=== PATIENT | male | born 1975 | race Hispanic/Latino ===

== ENCOUNTER 2022-09-30 18:46 | Emergency (ER) | payer OTHER ==
[~2022-09-30] VITALS: Ht 165.1 cm; Wt 99.8 kg
[2022-09-30 20:25] LABS: BASOPHILS % (AUTO) 0.8 % (0.0-5.0); EOSINOPHILS % (AUTO) 2.7 % (0.0-8.0); HEMATOCRIT 45.8 % (42-54); MEAN CORPUSCULAR HEMOGLOBIN 28.1 pg (27.0-33.0); MEAN CORPUSCULAR HGB CONC 33.4 g/dL (32.0-36.0); NEUTROPHILS % (AUTO) 49.3 % (40.0-77.0); PLATELET COUNT (AUTO) 271 K/uL (130-400); RED BLOOD CELL COUNT(AUTO) 5.45 MIL/uL (4.50-6.20); RED CELL DISTRIBUTION WIDTH 12.7 % (11.0-15.5); WHITE BLOOD COUNT (AUTO) 6.7 K/uL (4.8-10.8)
[2022-09-30] MEDS ORDERED: PREDNISONE 20 MG TABLET ONE (20:26)
[2022-09-30] MEDS ORDERED: IPRATROPIUM/ALBUTEROL SULFATE 3 ML SOLUTION IH ONE ×2 (20:30→21:30)
[2022-09-30] MEDS ORDERED: PREDNISONE 20 MG TABLET PO ONE (20:30)
[2022-09-30 20:33] LABS: CREATININE 1.1 mg/dL (0.5-1.5); POTASSIUM 4.2 mmol/L (3.5-5.1)
[2022-09-30 20:38] LABS: TOTAL PROTEIN, SERUM 9.1 g/dL (6.0-8.3)
[2022-09-30] MEDS ORDERED: ALBU90AE2 IH (21:37)
[2022-09-30] MEDS ORDERED: IBUP-2070 PO (21:37)
[2022-09-30] MEDS ORDERED: PRED20TA3 PO (21:37)
[2022-09-30] MEDS ORDERED: GUAIF10 PO (21:37)
[2022-09-30] MEDS ORDERED: AZIT500T2 PO (21:37)
[2022-09-30 22:02] VITALS: BP 120/79
== END 2022-09-30 22:03 | disposition home or self-care (01) ==
LOC: EDH 18:46
DX: J40 Bronchitis, not specified as acute or chronic (principal); Z20.822 Contact with and (suspected) exposure to COVID-19; Z90.89 Acquired absence of other organs
CPT/HCPCS: 99285; 71045; 87635; 84484; 80053; 85025; 87880; 87804 ×2; 36415; 93005; 94640; C9803

== ENCOUNTER 2023-12-21 11:04 | Emergency (ER) | payer OTHER ==
[~2023-12-21] VITALS: Ht 165.1 cm; Wt 88.5 kg
[~2023-12-21 11:04] MED LIST: ALBU90AE2 IH; AZIT500T2 PO; GUAIF10 PO; IBUP-2070 PO; PRED20TA3 PO
[2023-12-21 11:14] VITALS: BP 137/81; PULSE 90; RESP 16
[2023-12-21 12:04] LABS: SARS-CoV-2, RNA, NAAT POSITIVE SARS CoV-2 (NEGATIVE)
== END 2023-12-21 13:27 | disposition home or self-care (01) ==
LOC: EDH 11:04
DX: U07.1 COVID-19 (principal); J06.9 Acute upper respiratory infection, unspecified; J32.9 Chronic sinusitis, unspecified; Z90.49 Acquired absence of other specified parts of digestive tract
CPT/HCPCS: 87635